=== PATIENT | female | born 1970 | race Caucasian/White ===

== ENCOUNTER 2017-08-04 08:03 | Day surgery (SDC) | payer BC ==
[~2017-08-04 08:03] MED LIST: ATROPINE 1 MG/10 ML SYRINGE IV; CEFAZOLIN 1 GM INJ; DIPHENHYDRAMINE 50 MG INJ IV; EPHEDrine SULFATE 50 MG/5 ML SYG IV; FENTAnyl 50 MCG/ML VIAL IV; HYDROmorphONE (0.2 MG/ML) 10ML SYG IV; LABETALOL HCL 20MG INJ IV; MIDAZOLAM 1 MG/ML 2 ML INJ IV; OXYCODONE/ACETAMINOPHEN (5/325) TAB PO; hydrALAzine 20 MG INJ IV; morphine (1 MG/ML) 10ML SYRINGE IV
[2017-08-04] MEDS ORDERED: NEOSTIGMINE 3 MG/3 ML SYRINGE (10:05)
[2017-08-04] MEDS ORDERED: GLYCOPYRROLATE 0.4 MG INJ (10:05)
[2017-08-04] MEDS ORDERED: MIDAZOLAM 1 MG/ML 2 ML INJ (10:05)
[2017-08-04] MEDS ORDERED: FENTAnyl 50 MCG/ML VIAL (10:05)
[2017-08-04] MEDS ORDERED: PROPOFOL 20 ML (10:05)
[2017-08-04] MEDS ORDERED: ROCURONIUM 50 MG INJ (10:05)
[2017-08-04] MEDS ORDERED: LIDOCAINE 2% (SDV) 5 ML INJ (10:05)
[2017-08-04] MEDS ORDERED: ONDANSETRON 4 MG INJ (10:09)
[2017-08-04] MEDS ORDERED: DEXAMETHASONE 4 MG/ML 1 ML INJ (10:09)
[2017-08-04] MEDS ORDERED: SUCCINYLCHOLINE CHLORIDE 100 MG/5 ML SYG IV (10:32)
[2017-08-04] MEDS ORDERED: KETOROLAC 30 MG INJ IV (11:34)
[2017-08-04] MEDS: ONDANSETRON 4 MG INJ IV (11:44)
[2017-08-04] MEDS: FENTAnyl 50 MCG/ML VIAL IV ×2 (11:44→11:51)
[2017-08-04] MEDS: MEPERIDINE 25 MG INJ IV (11:57)
[2017-08-04] MEDS: HYDROmorphONE (0.2 MG/ML) 10ML SYG IV ×2 (12:01→12:24)
[2017-08-04] MEDS ORDERED: DEXTROSE 5%-LR 1,000 ML IV (13:30)
[2017-08-04] MEDS: METOCLOPRAMIDE 10 MG INJ IV (14:57)
== END 2017-08-04 15:28 | disposition home or self-care (01) ==
LOC: SDS 08:03
DX: N92.0 Excessive and frequent menstruation with regular cycle (principal); D25.9 Leiomyoma of uterus, unspecified; D26.1 Other benign neoplasm of corpus uteri; E03.9 Hypothyroidism, unspecified
CPT/HCPCS: 58563; 88305; 93005

== ENCOUNTER 2018-03-15 05:44 | Inpatient (IN) | payer BC ==
[2018-03-15] MEDS ORDERED: CEFAZOLIN 2 GM/50 ML (PMX) 50 ML IVPB (06:00)
[2018-03-15] MEDS ORDERED: GLYCOPYRROLATE 0.4 MG INJ (07:00)
[2018-03-15] MEDS ORDERED: ROCURONIUM 50 MG INJ (07:00)
[2018-03-15] MEDS ORDERED: NEOSTIGMINE 3 MG/3 ML SYRINGE (07:00)
[2018-03-15] MEDS ORDERED: THROMBIN 5000 UNIT VIAL ZFS (07:30)
[2018-03-15] MEDS ORDERED: THROMBIN 20,000 UNIT VIAL ZFS (07:30)
[2018-03-15] MEDS ORDERED: MIDAZOLAM 1 MG/ML 2 ML INJ (07:43)
[2018-03-15] MEDS ORDERED: METOCLOPRAMIDE 10 MG INJ (07:43)
[2018-03-15] MEDS ORDERED: morphine SULFATE/PF (10 MG/10 ML) INJ (07:44)
[2018-03-15] MEDS ORDERED: CEFAZOLIN 1 GM INJ (08:00)
[2018-03-15] MEDS ORDERED: FENTAnyl 50 MCG/ML VIAL (08:00)
[2018-03-15] MEDS ORDERED: ONDANSETRON 4 MG INJ (08:02)
[2018-03-15] MEDS ORDERED: KETOROLAC 30 MG INJ (08:02)
[2018-03-15] MEDS ORDERED: BUPIVACAINE 0.25%/EPI (SDV) 10 ML INJ (10:57)
[2018-03-15] MEDS ORDERED: ROPIVACAINE 0.5 % 30 ML VIAL (10:58)
[2018-03-15] MEDS ORDERED: DIPHENHYDRAMINE 50 MG CAP PO (11:30)
[2018-03-15] MEDS ORDERED: MEPERIDINE 25 MG INJ IV (11:30)
[2018-03-15] MEDS: KETOROLAC 30 MG INJ IV ×3 (11:30→23:30)
[2018-03-15] MEDS ORDERED: ONDANSETRON 4 MG INJ IV ×2 (11:30)
[2018-03-15] MEDS ORDERED: NALOXONE (0.4 MG/ML) INJ IV (11:30)
[2018-03-15] MEDS ORDERED: HYDROmorphONE 1 MG/5 ML IV SYRINGE IV ×3 (11:30)
[2018-03-15] MEDS ORDERED: HYDROCODONE/APAP (5/325) TAB PO ×2 (11:30)
[2018-03-15] MEDS ORDERED: KETOROLAC 30 MG INJ IV (11:30)
[2018-03-15] MEDS ORDERED: ZOLPIDEM 5 MG TAB PO (11:30)
[2018-03-15] MEDS ORDERED: DIPHENHYDRAMINE 50 MG INJ IV ×2 (11:30)
[2018-03-15] MEDS: LACTATED RINGER'S 1,000 ML IV ×3 (11:30→19:30)
[2018-03-15] MEDS ORDERED: HYDROmorphONE 0.5 MG/0.5 ML SYG IV ×3 (11:30)
[2018-03-15] MEDS ORDERED: BISACODYL (EC) 5 MG TAB PO (11:30)
[2018-03-15] MEDS ORDERED: HYDROmorphONE 1 MG/ML SYG IV (11:30)
[2018-03-15] MEDS: BUPIVACAINE 0.25%/EPI (SDV) 10 ML INJ (11:43)
[2018-03-15] MEDS: CEFAZOLIN 1 GM/50 ML (PMX) 50 ML IVPB ×2 (14:00→22:30)
[2018-03-15] MEDS: METOCLOPRAMIDE 10 MG TAB PO ×2 (14:00→18:54)
[2018-03-15] MEDS: ONDANSETRON INJ 6 MG in DEXTROSE 5% 50 ML IVPB (18:57)
[2018-03-15] MEDS ORDERED: FLUTICASONE PROPIONATE INHALATION (21:00)
[2018-03-15] MEDS: MOMETASONE 0.24 GM INHALER INH (22:30)
[2018-03-16] MEDS: METOCLOPRAMIDE 10 MG TAB PO ×5 (00:09→23:23)
[2018-03-16] MEDS: LACTATED RINGER'S 1,000 ML IV ×5 (01:32→18:32)
[2018-03-16] MEDS: CEFAZOLIN 1 GM/50 ML (PMX) 50 ML IVPB ×3 (05:45→21:42)
[2018-03-16] MEDS: KETOROLAC 30 MG INJ IV ×4 (05:52→23:24)
[2018-03-16 06:22] LABS: ADD MAN DIFF? NO
[2018-03-16 06:23] LABS: BASOPHILS % 0.2 % (0.0-2.0); EOSINOPHILS # 0.1 10^3/ul (0.0-0.5); EOSINOPHILS % 0.8 % (0.0-7.0); HEMOGLOBIN 12.1 g/dl (12.0-16.0); LYMPHOCYTES # 1.6 10^3/ul (0.8-2.9); LYMPHOCYTES % 19.3 % (15.0-51.0); MEAN CORPUSCULAR HEMOGLOBIN 31.2 pg (29.0-33.0); MEAN CORPUSCULAR HGB CONC 33.6 g/dl (32.0-37.0); MEAN CORPUSCULAR VOLUME 92.8 fl (82.0-101.0); MONOCYTE # 0.8 10^3/ul (0.3-0.9); NEUTROPHIL # 5.9 10^3/ul (1.6-7.5); NEUTROPHILS % 70.3 % (39.0-77.0); PLATELET COUNT 292 10^3/UL (140-415); RED BLOOD COUNT 3.88 10^6/ul (4.20-5.40); RED CELL DISTRIBUTION WIDTH 12.4 % (11.5-14.5)
[2018-03-16 06:23] LABS: WHITE BLOOD COUNT 8.3 10^3/ul (4.8-10.8)
[2018-03-16 07:16] LABS: ANION GAP 8 (5-13); BLOOD UREA NITROGEN 9 mg/dl (7-20); CARBON DIOXIDE 28 mmol/L (21-31); CHLORIDE 104 mmol/L (97-110); CREATININE 0.57 mg/dl (0.44-1.00); POTASSIUM 3.7 mmol/L (3.5-5.1); SODIUM 140 mmol/L (135-144)
[2018-03-16] MEDS: LEVOTHYROXINE 75 MCG TAB PO (08:27)
[2018-03-16] MEDS: MOMETASONE 0.24 GM INHALER INH ×3 (08:41→20:36)
[2018-03-17] MEDS: METOCLOPRAMIDE 10 MG TAB PO (05:38)
[2018-03-17] MEDS: KETOROLAC 30 MG INJ IV (05:38)
[2018-03-17] MEDS: LEVOTHYROXINE 75 MCG TAB PO (05:38)
[2018-03-17] MEDS: CEFAZOLIN 1 GM/50 ML (PMX) 50 ML IVPB (05:43)
== END 2018-03-17 10:40 | disposition home or self-care (01) | DRG 743 ==
LOC: REC 05:44 → 2NE 12:50
PROC: 0UT9FZZ Resection of Uterus, Via Natural or Artificial Opening With Percutaneous Endoscopic Assistance (ICD-10-PCS; principal; 2018-03-15 07:30)
DX: D25.0 Submucous leiomyoma of uterus (principal); N80.0 Endometriosis of uterus; N73.6 Female pelvic peritoneal adhesions (postinfective)
CPT/HCPCS: 80051; 82565; 84520; 85025; 86850; 86900; 86901; 87086; 88305; 93005